=== PATIENT | female | born 2000 | race Caucasian/White ===

== ENCOUNTER 2020-07-18 17:16 | Emergency (ER) | payer OTHER ==
[~2020-07-18] VITALS: Ht 160 cm; Wt 77.1 kg
[2020-07-18] MEDS ORDERED: AMOXIL 875 MG875 M2 PO (17:29)
[2020-07-18 18:48] LABS: HEMATOCRIT 39.2 % (37.0-47.0); HEMOGLOBIN 13.1 gm/dL (12.0-15.0); MCH 28.5 pg (26.0-34.0); MCHC 33.5 g/dL (28.0-37.0); MCV 85.1 fL (80.0-100.0); MPV 8.3 fl. (7.2-11.1); NUCLEATED RBCS 0 /100WBC; PLATELET COUNT* 235 thou/uL (150-400); RBC 4.61 mil/uL (4.20-5.00); RDW-CV 12.9 % (10.5-14.5); WBC 12.3 thou/uL (4.0-11.0)
[2020-07-18 18:50] LABS: CALCIUM 10.1 mg/dL (8.5-10.1); POTASSIUM 4.2 mmol/L (3.5-5.1)
[2020-07-18 18:57] LABS: ALBUMIN 3.7 g/dL (3.4-5.0); TOTAL BILIRUBIN 0.5 mg/dL (<0.1-1.0); TOTAL PROTEIN 8.5 g/dL (6.4-8.2)
[2020-07-18 19:12] LABS: MONOTEST (MONOSPOT)* POSITIVE (Negative)
[2020-07-18 19:18] LABS: INFLUENZA A ANTIGEN Negative (Negative); INFLUENZA B ANTIGEN Negative (Negative)
[2020-07-18] MEDS ORDERED: NORCO5 PO (19:35)
[2020-07-18] MEDS ORDERED: PREDNISONE 20 M20 MG PO (19:35)
[2020-07-18] MEDS ORDERED: ZOFRAN ODT4 MG PO (19:35)
[2020-07-18 19:58] LABS: ABSOLUTE LYMPHOCYTES 6.4 thou/uL (0.8-5.3); ABSOLUTE MONOCYTES 1.5 thou/uL (0.0-1.2); ABSOLUTE NEUTROPHILS 4.4 thou/uL (1.6-8.1)
[2020-07-18 20:00] LABS: PLATELET ESTIMATE ADEQUATE
[2020-07-18 21:00] VITALS: BP 108/57
== END 2020-07-18 21:00 | disposition home or self-care (01) ==
LOC: M.ERS 17:16
PROVIDERS: Nurse Practitioner Family
DX: B27.90 Infectious mononucleosis, unspecified without complication (principal); E86.0 Dehydration; Z20.822 Contact with and (suspected) exposure to COVID-19